=== PATIENT | male | born 1950 | race Caucasian/White ===

== ENCOUNTER 2018-12-08 10:13 | Emergency (ER) | payer MEDICARE, BC ==
[2018-12-08] MEDS ORDERED: SODIUM CHLORIDE 0.9% 500 ML IV ONE (10:24)
--- NOTE | 2018-12-08 10:27 | Emergency Department Record ---
History of Present Illness - General Chief complaint: Pain Stated complaint: Right hip pain Time Seen by Provider: 12/08/18 10:21 Source: Patient, Family Mode of Arrival: Stretcher Limitations: No limitations - History of Present Illness Initial comments: The patient is here due to R hip pain for an hour. The patient tripped after walking down steps and landed on his R hip. He denied any head injury or trauma and also denies any LOC or neck pain. The patient is ONLY complaining of R hip pain. There is no back, rib or abdominal pain. MD Complaint: Extremity pain Onset/Timin -: Hour(s) Location: Right Radiation: Proximal - Related Data Home Medications Medication Instructions Recorded Confirmed Last Taken Aspirin [Adult Aspirin Regimen] 81 mg PO DAILY 12/08/18 12/08/18 12/08/18 Cholecalciferol (Vitamin D3) 5,000 unit PO WEEKLY 12/08/18 12/08/18 12/04/18 [Vitamin D3] Simvastatin [Zocor] 20 mg PO DAILY 12/08/18 12/08/18 12/08/18 Allergies Allergy/AdvReac Type Severity Reaction Status Date / Time Penicillins Allergy RASH Verified 12/08/18 10:20 Review of Systems Constitutional: Denies: Chills, Fever Eyes: Denies: Eye discharge ENT: Denies: Congestion Respiratory: Denies: Cough, Dyspnea Cardiovascular: Denies: Arrhythmia Endocrine: Denies: Fatigue Gastrointestinal: Denies: Nausea Genitourinary: Denies: Dysuria Musculoskeletal: Denies: Arthralgia Skin: Denies: Bruising Past Medical History - SOCIAL HISTORY Smoking Status: Never smoker Alcohol Use: None Drug Use: None - RESPIRATORY Hx Respiratory Disorders: No - CARDIOVASCULAR Hx Cardio Disorders: No - NEURO Hx Neuro Disorders: No - GI Hx GI Disorders: No Physical Exam - General General Appearance: Alert, Oriented x3, Cooperative, No acute distress - Head Head exam: Atraumatic, Normocephalic, Normal inspection - Eye Eye exam: Normal appearance, PERRL, EOMI - Neck Neck exam: Normal inspection, Full ROM. negative: Tenderness - Respiratory Respiratory exam: Normal lung sounds bilaterally. negative: Respiratory distress - Cardiovascular Cardiovascular Exam: Regular rate, Normal rhythm, Normal heart sounds - GI/Abdominal GI/Abdominal exam: Soft, Normal bowel sounds. negative: Tenderness - Extremities Extremities exam: Tenderness (There is R hip tenderness with the R leg shortened and rotated.). negative: Normal inspection, Full ROM - Neurological Neurological exam: Abnormal gait, Alert, Oriented X3. negative: Altered, Motor sensory deficit, Normal gait - Psychiatric Psychiatric exam: negative: Anxious - Skin Skin exam: negative: Rash Course - Reevaluation(s) Reevaluation #1: The patient is doing very well at this time. 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 Because of that I did discuss the case [place] Gifford ([place]) [place] [facility] [place] to [place] for further evaluation. I then also did speak with Dr. Wise in the ER and he also accepted the patient in transfer. 12/08/18 11:51 Medical Decision Making - Data Complexity MDM Data: Labs Ordered and/or Reviewed, X-Ray Ordered and/or Reviewed - Lab Data Result diagrams: 12/08/18 10:30 12/08/18 10:30 - Radiology Data Radiology results: Report reviewed (R hip: Comminuted IT fx thru tumor.) Disposition Disposition: Transfer Clinical Impression: Hip fracture, pathological Qualifiers: Pathology associated with fracture: unspecified disease Encounter type: initial encounter Laterality: right Qualified Code(s): M84.451A - Pathological fracture, right femur, initial encounter for fracture Disposition: Acute Care Hospital Transfer Transfer [place] [facility] For Transfer: Pathological Hip Fx. Accepting Physician: Ronny Gifford Time Discussed w/Accepting Physician: 11:54 Condition: (2) Stable Forms: Patient Portal Access Time of Disposition: 11:54 Quality - Quality Measures Quality Measures: N/A - Blood Pressure Screening View Details: Yes Does Patient Have Any of the Following: No Blood Pressure Classification: Normal BP Reading Systolic Measurement: 100 Diastolic Measurement: 57 Screening for High Blood Pressure: < Normal BP, F/U Not Required > [G8783]
[2018-12-08] MEDS ORDERED: ACETAMINOPHEN 1,000 MG/100 ML BTL IVPB ONE (10:29)
[2018-12-08 10:44] LABS: ABSOLUTE NEUTROPHIL COUNT 5.86; BASO % 0.3 % (0-6); EOS % 2.4 % (0-6); GRAN % 63.4 % (47-80); HEMATOCRIT 46.3 % (42.0-52.0); LYMPH % 23.9 % (16-45); MEAN CELL VOLUME 95.1 fl (81-97); MEAN CORPUSCULAR HEMOGLOBIN 30.8 pg (27-33); MEAN CORPUSCULAR HGB CONC 32.4 g/dl (32-36); MEAN PLATELET VOLUME 9.5 fl (7.4-10.4); PLATELET COUNT 347 K/uL (130-400); RED BLOOD COUNT 4.87 M/uL (4.40-5.70); RED CELL DISTRIBUTION WIDTH 13.6 % (11.5-14.5); WHITE BLOOD COUNT W/O DIFF 9.2 K/uL (4.2-12.2)
[2018-12-08 10:56] LABS: BLOOD UREA NITROGEN 14 mg/dL (8-23); CREATININE 0.9 mg/dL (0.7-1.2); EST GLOMERULAR FILTRATION RATE > 60 mL/min
[2018-12-08 10:57] LABS: PARTIAL THROMBOPLASTIN TIME 22.2 SECONDS (24.5-39.1); PROTHROMBIN TIME (PATIENT) 10.3 SECONDS (9.5-12.1); TOTAL PROTEIN 6.9 g/dL (6.6-8.7)
[2018-12-08 10:58] LABS: GLUCOSE,RANDOM 112 mg/dL (74-109)
[2018-12-08 11:01] LABS: ALBUMIN 4.6 g/dL (4.0-5.0); ALKALINE PHOSPHATASE 138 U/L (40-129); ALT/SGPT 30 U/L (<41); AST/SGOT 20 U/L (10.0-50.0)
[2018-12-08 11:02] LABS: BILIRUBIN,DIRECT < 0.2 mg/dL (0-0.3)
--- NOTE | 2018-12-09 09:45 | RADIOLOGY REPORT ---
EXAM: RIGHT HIP WITH PELVIS HISTORY: PAIN POST FALL. TECHNIQUE: An AP view of the pelvis was obtained as well as AP and crosstable lateral views of the right hip. Comparison: None. Encounter: Initial. FINDINGS: There is an acute comminuted intratrochanteric right femur fracture with equivocal minimal varus deformity of the main fracture fragments. There is distraction of the greater and lesser trochanter components. This fracture is superimposed on an expansile lytic lesion having sclerotic margins. There is an additional expansile lytic lesion with thin sclerotic margins involving the medial right iliac bone. There is possible extension through the cortex of the iliac wing superomedially. The etiology of this bone process is indeterminate. This could be the result of monostotic fibrous dysplasia though malignancy is also within the differential diagnosis. Infection is less likely. No other fracture is seen nor is there dislocation. Mild degenerative changes of the hips, sacroiliac joints and lower lumbar spine. IMPRESSION: 1. COMMINUTED INTRATROCHANTERIC PATHOLOGIC FRACTURE OF THE RIGHT FEMUR, DISCUSSED ABOVE. 2. EXPANSILE LYTIC LESION WITH SCLEROTIC MARGINS WITHIN THE PROXIMAL RIGHT FEMUR AND WITHIN THE MEDIAL RIGHT ILIAC BONE. PLEASE SEE ABOVE DISCUSSION. JOB NUMBER: [id number] [facility]
== END 2018-12-08 12:25 | disposition short-term general hospital (02) ==
LOC: ER 10:13
DX: S72.141A Displaced intertrochanteric fracture of right femur, initial encounter for closed fracture (principal); D49.89 Neoplasm of unspecified behavior of other specified sites; W10.9XXA Fall (on) (from) unspecified stairs and steps, initial encounter
CPT/HCPCS: 80048; 80076; 85025; 85610; 85730; 96365; 99284